=== PATIENT | male | born 1955 | race Hispanic/Latino ===

== ENCOUNTER → 2021-12-17 | Outpatient (CLI) | payer BC ==
[~2021-12-17] VITALS: Ht 165.1 cm; Wt 85.7 kg
[~2021-12-17] MED LIST: REGADENOSON 0.4 MG/5 ML PF SYG IVP SCH
== END | disposition home or self-care (01) ==
LOC: SHCH 08:47
PROVIDERS: ATTEND Internal Medicine Cardiovascular Disease
DX: I25.5 Ischemic cardiomyopathy (principal); I50.21 Acute systolic (congestive) heart failure
CPT/HCPCS: 78452; 93017; 96374; A9500 ×2; J2785

== ENCOUNTER 2022-03-05 07:02 | Day surgery (SDC) | payer BC ==
[2022-02-28 16:49] LABS: BASOPHILS % (AUTO) 0.5 % (0.0-5.0); EOSINOPHILS % (AUTO) 3.4 % (0.0-8.0); HEMATOCRIT 40.1 % (42-54); LYMPHOCYTES % (AUTO) 29.8 % (21.0-51.0); MEAN CORPUSCULAR HEMOGLOBIN 24.9 pg (27.0-33.0); MEAN CORPUSCULAR HGB CONC 30.9 g/dL (32.0-36.0); MEAN CORPUSCULAR VOLUME 80.7 fL (79-99); MONOCYTES % (AUTO) 7.8 % (3.0-13.0); NEUTROPHILS % (AUTO) 58.2 % (40.0-77.0); PLATELET COUNT (AUTO) 349 K/uL (130-400); RED BLOOD CELL COUNT(AUTO) 4.97 MIL/uL (4.50-6.20); RED CELL DISTRIBUTION WIDTH 17.2 % (11.0-15.5); WHITE BLOOD COUNT (AUTO) 7.3 K/uL (4.8-10.8)
[2022-02-28 16:52] LABS: APPEARANCE,URINE Clear (CLEAR); BILIRUBIN,URINE Negative (NEGATIVE); COLOR,URINE Yellow (YELLOW); GLUCOSE, URINE (UA) Negative (NEGATIVE); KETONES,URINE Negative (NEGATIVE); LEUKOCYTE ESTERASE ,URINE Negative (NEGATIVE); NITRATE,URINE Negative (NEGATIVE); OCCULT BLOOD,URINE Negative (NEGATIVE); PROTEIN,URINE Negative (NEGATIVE); UROBILINOGEN,URINE 0.2 mg/dL (0.2-1.0)
[2022-02-28 17:03] LABS: INR 1.02 (0.85-1.15); PROTHROMBIN TIME 11.1 SEC (9.6-11.6)
[2022-02-28 17:04] LABS: PARTIAL THROMBOPLASTIN TIME 33.5 SEC (26.3-35.5)
[2022-02-28 17:08] LABS: CREATININE 1.2 mg/dL (0.5-1.5)
[2022-02-28 17:32] LABS: B-TYPE NATRIURETIC PEPTIDE 222 pg/mL (0-100)
[~2022-03-05] VITALS: Ht 165.1 cm; Wt 78.0 kg
[2022-03-05] VITALS (15 sets, daily range): BP systolic 91–150; BP diastolic 53–72
[~2022-03-05 07:02] MED LIST changes: +AEC81 PO; +FURO40TA7 PO; +INDO50CA97 PO; -REGADENOSON 0.4 MG/5 ML PF SYG IVP SCH; +SACU1TAB PO
[2022-03-05] MEDS ORDERED: HEPARIN 10,000 UNIT/10ML (1,000 UNIT/ML) VIAL ONE (07:26)
[2022-03-05] MEDS ORDERED: IOHEXOL-350 50ML VIAL IV ONE (07:26)
[2022-03-05] MEDS ORDERED: HEPARIN 1,000 UNIT VIAL ONE (07:26)
[2022-03-05] MEDS ORDERED: LIDOCAINE HCL 400MG/20ML VIAL ONE (07:27)
[2022-03-05] MEDS ORDERED: IOHEXOL-350 75 ML VIAL IV ONE (07:27)
[2022-03-05 07:36] LABS: POTASSIUM 4.1 mmol/L (3.5-5.1)
[2022-03-05] MEDS ORDERED: 0.9%NACL 1000ML 1,000 ML IV ONE (07:43)
[2022-03-05] MEDS ORDERED: LIDOCAINE HCL-MPF 2% 5ML VIAL ONE (07:56)
[2022-03-05] MEDS ORDERED: FUROSEMIDE 20MG VIAL ONE (08:14)
[2022-03-05] MEDS ORDERED: 0.9%NACL 10ML VIAL IVP SCH (09:00)
== END 2022-03-05 18:55 | disposition home or self-care (01) ==
LOC: DAH 07:02
PROVIDERS: ATTEND Internal Medicine Cardiovascular Disease
DX: I42.0 Dilated cardiomyopathy (principal); I50.42 Chronic combined systolic (congestive) and diastolic (congestive) heart failure; Z79.899 Other long term (current) drug therapy; Z79.01 Long term (current) use of anticoagulants; Z79.82 Long term (current) use of aspirin; Z86.16 Personal history of COVID-19; Z82.3 Family history of stroke; Z82.49 Family history of ischemic heart disease and other diseases of the circulatory system
CPT/HCPCS: 36415 ×2; 71045 ×2; 80048 ×2; 81003; 83880 ×2; 85025; 85610; 85730; 93005; 93458; A4215; A4216; A4221; A4222; A4223 ×3; A4606; A4663; C1894; J1644 ×2; J1940; J3490 ×2; J7030; Q9967 ×2

== ENCOUNTER 2022-04-10 07:16 | Day surgery (SDC) | payer BC ==
[2022-04-04 11:30] LABS: BASOPHILS % (AUTO) 0.6 % (0.0-5.0); HEMATOCRIT 44.1 % (42-54); LYMPHOCYTES % (AUTO) 30.9 % (21.0-51.0); MEAN CORPUSCULAR HEMOGLOBIN 25.6 pg (27.0-33.0); MEAN CORPUSCULAR HGB CONC 31.3 g/dL (32.0-36.0); MEAN CORPUSCULAR VOLUME 81.8 fL (79-99); MONOCYTES % (AUTO) 7.7 % (3.0-13.0); NEUTROPHILS % (AUTO) 56.5 % (40.0-77.0); PLATELET COUNT (AUTO) 308 K/uL (130-400); RED BLOOD CELL COUNT(AUTO) 5.39 MIL/uL (4.50-6.20); RED CELL DISTRIBUTION WIDTH 17.7 % (11.0-15.5); WHITE BLOOD COUNT (AUTO) 6.9 K/uL (4.8-10.8)
[2022-04-04 11:37] LABS: CREATININE 0.9 mg/dL (0.5-1.5); POTASSIUM 4.4 mmol/L (3.5-5.1)
[2022-04-04 11:54] LABS: INR 1.02 (0.85-1.15); PROTHROMBIN TIME 11.1 SEC (9.6-11.6)
[2022-04-04 11:56] LABS: PARTIAL THROMBOPLASTIN TIME 34.1 SEC (26.3-35.5)
[2022-04-09 08:50] VITALS: BP 122/74
[2022-04-10] VITALS (10 sets, daily range): BP systolic 87–109; BP diastolic 56–72
[~2022-04-10] VITALS: Ht 165.1 cm; Wt 76.2 kg
[~2022-04-10 07:16] MED LIST changes: +0.9%NACL 1000ML 1,000 ML IV SCH; +CARV3.12 PO; +CEFAZOLIN SODIUM 1 GM VIAL IVP SCH; -INDO50CA97 PO
[2022-04-10] MEDS ORDERED: LIDOCAINE HCL 1% 10 ML VIAL ONE (07:41)
[2022-04-10] MEDS ORDERED: BUPIVACAINE/PF 0.25% 30ML VIAL IJ ONE (07:41)
[2022-04-10] MEDS ORDERED: IOHEXOL-350 50ML VIAL IV ONE (07:41)
[2022-04-10] MEDS ORDERED: MIDAZOLAM HCL 1 MG/ML 2ML VIAL ONE ×2 (07:42→08:42)
[2022-04-10] MEDS ORDERED: MEPERIDINE-PF 25 MG/ML SYG ONE ×2 (07:42→08:43)
[2022-04-10] MEDS ORDERED: ACETAMINOPHEN WITH CODEINE 1 TAB TAB PO PRN (09:30)
[2022-04-10] MEDS ORDERED: TRAM50TA4 PO (09:36)
== END 2022-04-10 13:15 | disposition home or self-care (01) ==
LOC: DAH 07:16
PROVIDERS: ATTEND Internal Medicine Cardiovascular Disease
DX: I50.42 Chronic combined systolic (congestive) and diastolic (congestive) heart failure (principal); I42.8 Other cardiomyopathies; I25.2 Old myocardial infarction; Z79.82 Long term (current) use of aspirin; Z79.899 Other long term (current) drug therapy; Z79.01 Long term (current) use of anticoagulants; Z82.49 Family history of ischemic heart disease and other diseases of the circulatory system; Z98.890 Other specified postprocedural states
CPT/HCPCS: 80048; 85025; 85610; 85730; 36415; 93005; 33249; 71045; C1722; C1895; J0690; J7030; J3490 ×2; J2250 ×2; J2175 ×2; A4215; A4222; A4221; A4663; A4216; A6258; A4606; A4223 ×3; 99156; 99157; Q9967

== ENCOUNTER → 2023-08-21 | Outpatient (CLI) | payer OTHER ==
[~2023-08-21] MED LIST changes: -0.9%NACL 1000ML 1,000 ML IV SCH; -AEC81 PO; -CEFAZOLIN SODIUM 1 GM VIAL IVP SCH; +FURO40TA5 PO; -FURO40TA7 PO; +PANT40TA54 PO; +WARF3TAB59 PO
[2023-08-21 16:20] LABS: BASOPHILS # (AUTO) 0.03 K/uL (0.00-0.20); BASOPHILS % (AUTO) 0.4 % (0.0-5.0); EOSINOPHILS # (AUTO) 0.12 K/uL (0.00-0.70); EOSINOPHILS % (AUTO) 1.6 % (0.0-8.0); IMMATURE GRANULOCYTE ABSOLUTE 0.04 K/uL (0-1); LYMPHOCYTES # (AUTO) 1.5 K/uL (1.0-4.8); LYMPHOCYTES % (AUTO) 20.1 % (21.0-51.0); MEAN CORPUSCULAR HEMOGLOBIN 24.8 pg (27.0-33.0); MEAN CORPUSCULAR HGB CONC 30.5 g/dL (32.0-36.0); MEAN CORPUSCULAR VOLUME 81.4 fL (79-99); MONOCYTES # (AUTO) 0.7 K/uL (0.1-1.0); MONOCYTES % (AUTO) 9.6 % (3.0-13.0); NEUTROPHILS # (AUTO) 5.2 K/uL (1.8-7.7); NEUTROPHILS % (AUTO) 67.8 % (40.0-77.0); NUCLEATED RED BLOOD CELLS 0.4 % (0.0-0.19); PLATELET COUNT (AUTO) 262 K/uL (130-400); RED BLOOD CELL COUNT(AUTO) 5.28 MIL/uL (4.50-6.20); RED CELL DISTRIBUTION WIDTH 17.2 % (11.0-15.5); WHITE BLOOD COUNT (AUTO) 7.6 K/uL (4.8-10.8)
[2023-08-21 16:43] LABS: ALBUMIN 2.8 g/dL (3.5-5.0); CREATININE 1.2 mg/dL (0.5-1.5); POTASSIUM 3.9 mmol/L (3.5-5.1); TOTAL PROTEIN, SERUM 7.3 g/dL (6.0-8.3)
== END | disposition home or self-care (01) ==
LOC: LAB 11:56
PROVIDERS: ATTEND Internal Medicine Cardiovascular Disease
DX: I35.0 Nonrheumatic aortic (valve) stenosis (principal)
CPT/HCPCS: 36415; 80053; 85025

== ENCOUNTER 2023-08-23 22:37 | Inpatient (IN) | payer OTHER ==
[~2023-08-23] VITALS: Ht 167.6 cm; Wt 63.0 kg
[2023-08-23 23:16] LABS: BASOPHILS # (AUTO) 0.02 K/uL (0.00-0.20); BASOPHILS % (AUTO) 0.3 % (0.0-5.0); IMMATURE GRANULOCYTE ABSOLUTE 0.03 K/uL (0-1); LYMPHOCYTES # (AUTO) 0.9 K/uL (1.0-4.8); LYMPHOCYTES % (AUTO) 12.4 % (21.0-51.0); MEAN CORPUSCULAR HEMOGLOBIN 24.9 pg (27.0-33.0); MEAN CORPUSCULAR HGB CONC 31.8 g/dL (32.0-36.0); MEAN CORPUSCULAR VOLUME 78.3 fL (79-99); MONOCYTES # (AUTO) 0.7 K/uL (0.1-1.0); MONOCYTES % (AUTO) 8.6 % (3.0-13.0); NEUTROPHILS # (AUTO) 5.9 K/uL (1.8-7.7); NEUTROPHILS % (AUTO) 78.3 % (40.0-77.0); NUCLEATED RED BLOOD CELLS 0.3 % (0.0-0.19); PLATELET COUNT (AUTO) 277 K/uL (130-400); RED BLOOD CELL COUNT(AUTO) 5.62 MIL/uL (4.50-6.20); RED CELL DISTRIBUTION WIDTH 17.4 % (11.0-15.5); WHITE BLOOD COUNT (AUTO) 7.6 K/uL (4.8-10.8)
[2023-08-23 23:24] LABS: APPEARANCE,URINE CLOUDY (CLEAR); BILIRUBIN,URINE NEGATIVE (NEGATIVE); COLOR,URINE YELLOW (YELLOW); GLUCOSE, URINE (UA) NEGATIVE (NEGATIVE); KETONES,URINE NEGATIVE (NEGATIVE); LEUKOCYTE ESTERASE ,URINE NEGATIVE Leu/uL (NEGATIVE); NITRATE,URINE NEGATIVE (NEGATIVE); OCCULT BLOOD,URINE NEGATIVE (NEGATIVE); PH,URINE 5.5 (5.0-8.0); PROTEIN,URINE 50 mg/dL (NEGATIVE); UROBILINOGEN,URINE 0.2 mg/dL (0.2-1.0)
[2023-08-23 23:25] LABS: ADD UA MICROSCOPIC YES
[2023-08-23 23:27] LABS: CREATININE 1.7 mg/dL (0.5-1.5); POTASSIUM 3.8 mmol/L (3.5-5.1)
[2023-08-23 23:29] LABS: INR 2.89 (0.85-1.15); PROTHROMBIN TIME 31.3 SEC (9.6-11.6)
[2023-08-23 23:31] LABS: PARTIAL THROMBOPLASTIN TIME 43.2 SEC (26.3-35.5)
[2023-08-23 23:34] LABS: ALBUMIN 3.3 g/dL (3.5-5.0); BILIRUBIN,TOTAL 2.6 mg/dL (0.2-1.0); MAGNESIUM 2.1 mg/dL (1.80-2.40); TOTAL PROTEIN, SERUM 8.4 g/dL (6.0-8.3)
[2023-08-23 23:36] LABS: BACTERIA,URINE FEW /HPF (None Seen); HYALINE CASTS, URINE 51-100 /LPF (0-1 /LPF); MUCUS,URINE RARE LPF (None Seen); SQUAMOUS EPITHELIAL CELL,UR RARE /HPF (0-2); WBC,URINE 0-1 /HPF (0-1)
[2023-08-23 23:54] LABS: B-TYPE NATRIURETIC PEPTIDE 2990 pg/mL (0-100)
[2023-08-24] VITALS (9 sets, daily range): BP systolic 87–106; BP diastolic 59–74; PULSE 85–102; RESP 18–20; O2SAT 99
[2023-08-24] MEDS ORDERED: INSULIN HUMULIN R 100 UNIT/ML 3ML SQ PRN
[2023-08-24] MEDS ORDERED: ONDANSETRON 4MG INJ IVP PRN
[2023-08-24] MEDS ORDERED: ACETAMINOPHEN 325 MG TAB PO PRN
[2023-08-24] MEDS ORDERED: FUROSEMIDE 40MG VIAL IV SCH
[2023-08-24] MEDS ORDERED: FUROSEMIDE 40MG VIAL ONE (01:49)
[2023-08-24] MEDS: MIDODRINE HCL 5 MG TABLET PO SCH ×2 (01:51→09:10)
[2023-08-24 07:35] LABS: BASOPHILS # (AUTO) 0.02 K/uL (0.00-0.20); BASOPHILS % (AUTO) 0.4 % (0.0-5.0); HEMATOCRIT 35.1 % (42-54); IMMATURE GRANULOCYTE ABSOLUTE 0.03 K/uL (0-1); LYMPHOCYTES # (AUTO) 0.8 K/uL (1.0-4.8); LYMPHOCYTES % (AUTO) 15.6 % (21.0-51.0); MEAN CORPUSCULAR HEMOGLOBIN 25.5 pg (27.0-33.0); MEAN CORPUSCULAR HGB CONC 32.5 g/dL (32.0-36.0); MEAN CORPUSCULAR VOLUME 78.5 fL (79-99); MONOCYTES # (AUTO) 0.6 K/uL (0.1-1.0); NEUTROPHILS # (AUTO) 3.8 K/uL (1.8-7.7); NEUTROPHILS % (AUTO) 72.4 % (40.0-77.0); PLATELET COUNT (AUTO) 207 K/uL (130-400); RED BLOOD CELL COUNT(AUTO) 4.47 MIL/uL (4.50-6.20); RED CELL DISTRIBUTION WIDTH 16.5 % (11.0-15.5); WHITE BLOOD COUNT (AUTO) 5.3 K/uL (4.8-10.8)
[2023-08-24 07:49] LABS: HEMOGLOBIN A1C 6.8 % (4.0-6.0)
[2023-08-24 08:41] LABS: CREATININE 1.3 mg/dL (0.5-1.5); MAGNESIUM 1.8 mg/dL (1.80-2.40)
[2023-08-24] MEDS ORDERED: ASPIRIN 81 MG EC TAB PO SCH (09:00)
[2023-08-24] MEDS ORDERED: ENOXAPARIN SODIUM 40 MG/0.4 ML SYRINGE SQ SCH (09:00)
[2023-08-24] MEDS: POTASSIUM CHLORIDE 10% ELIXIR 20 MEQ/15 ML UDCUP PO PRN ×4 (09:59→16:02)
[2023-08-24] MEDS ORDERED: POTASSIUM CHLORIDE 20MEQ/100ML 100 ML IV PRN (10:00)
[2023-08-24] MEDS ORDERED: PHARMACY COMMUNICATION MISC SCH (12:00)
[2023-08-24] MEDS: CARVEDILOL 3.125 MG TABLET PO SCH ×2 (12:00→20:05)
[2023-08-24] MEDS: DIGOXIN 125 MCG TABLET PO SCH (12:23)
[2023-08-24] MEDS: SPIRONOLACTONE 25 MG TAB PO SCH (12:23)
[2023-08-24] MEDS: MILRINONE-D5W 20 MG/100 ML 100 ML IV SCH (12:36)
[2023-08-24] MEDS: BUMETANIDE 2.5MG/10ML (DRIP) 40 ML IV SCH ×2 (12:38→20:14)
[2023-08-24] MEDS: WARFARIN SODIUM 1 MG TAB PO SCH (16:03)
[2023-08-24] MEDS: SACUBITRIL/VALSARTAN 1 EACH TABLET PO SCH (20:03)
[2023-08-24] MEDS: KCL 20 MEQ ERTAB PO PRN (20:03)
[2023-08-25] VITALS (10 sets, daily range): BP systolic 92–108; BP diastolic 52–78; PULSE 92–109; RESP 16–20; O2SAT 94–97
[2023-08-25 04:34] LABS: MAGNESIUM 1.8 mg/dL (1.80-2.40); POTASSIUM 3.2 mmol/L (3.5-5.1)
[2023-08-25] MEDS: KCL 20 MEQ ERTAB PO PRN ×3 (04:43→16:02)
[2023-08-25] MEDS: MILRINONE-D5W 20 MG/100 ML 100 ML IV SCH ×2 (06:38→20:39)
[2023-08-25] MEDS: MAGNESIUM 2GM PREMIX 50ML 50 ML IV PRN (08:08)
[2023-08-25] MEDS: DIGOXIN 125 MCG TABLET PO SCH (08:08)
[2023-08-25] MEDS: CARVEDILOL 3.125 MG TABLET PO SCH ×2 (08:08→20:38)
[2023-08-25 08:21] LABS: HEMATOCRIT 36.6 % (42-54); MEAN CORPUSCULAR HEMOGLOBIN 25.1 pg (27.0-33.0); MEAN CORPUSCULAR HGB CONC 31.7 g/dL (32.0-36.0); MEAN CORPUSCULAR VOLUME 79.2 fL (79-99); RED BLOOD CELL COUNT(AUTO) 4.62 MIL/uL (4.50-6.20); RED CELL DISTRIBUTION WIDTH 17.1 % (11.0-15.5); WHITE BLOOD COUNT (AUTO) 7.7 K/uL (4.8-10.8)
[2023-08-25 08:28] LABS: CREATININE 1.3 mg/dL (0.5-1.5); POTASSIUM 3.2 mmol/L (3.5-5.1)
[2023-08-25 08:31] LABS: INR 2.18 (0.85-1.15)
[2023-08-25 08:33] LABS: PARTIAL THROMBOPLASTIN TIME 46.6 SEC (26.3-35.5)
[2023-08-25] MEDS: POTASSIUM CHLORIDE 10% ELIXIR 20 MEQ/15 ML UDCUP PO PRN ×3 (10:04→20:39)
[2023-08-25] MEDS: SACUBITRIL/VALSARTAN 1 EACH TABLET PO SCH ×2 (10:07→20:11)
[2023-08-25] MEDS: SPIRONOLACTONE 25 MG TAB PO SCH (11:09)
[2023-08-25 15:25] LABS: CREATININE 1.1 mg/dL (0.5-1.5); MAGNESIUM 2.2 mg/dL (1.80-2.40); POTASSIUM 3.8 mmol/L (3.5-5.1)
[2023-08-25] MEDS ORDERED: WARFARIN SODIUM 1 MG TAB PO SCH (16:00)
[2023-08-25] MEDS: BUMETANIDE 2.5MG/10ML (DRIP) 40 ML IV SCH (19:05)
[2023-08-26] VITALS (9 sets, daily range): BP systolic 91–111; BP diastolic 49–68; PULSE 87–99; RESP 17–20; O2SAT 95
[2023-08-26 04:36] LABS: CREATININE 1.1 mg/dL (0.5-1.5); MAGNESIUM 1.8 mg/dL (1.80-2.40); POTASSIUM 3.3 mmol/L (3.5-5.1)
[2023-08-26] MEDS: POTASSIUM CHLORIDE 10% ELIXIR 20 MEQ/15 ML UDCUP PO PRN (05:33)
[2023-08-26] MEDS ORDERED: DIGOXIN 250 MCG/ML 2ML AMP IV ONE (08:00)
[2023-08-26] MEDS: SPIRONOLACTONE 25 MG TAB PO SCH (11:14)
[2023-08-26] MEDS: POTASSIUM CHLORIDE 10MEQ SR TAB PO SCH ×2 (11:14→21:00)
[2023-08-26] MEDS: DIGOXIN 125 MCG TABLET PO SCH (11:15)
[2023-08-26] MEDS: PANTOPRAZOLE 40 MG TAB DR PO SCH (11:16)
[2023-08-26] MEDS: TORSEMIDE 20 MG TAB PO SCH ×2 (11:16→20:59)
[2023-08-26] MEDS: CARVEDILOL 3.125 MG TABLET PO SCH ×2 (11:16→20:58)
[2023-08-26] MEDS: SACUBITRIL/VALSARTAN 1 EACH TABLET PO SCH ×2 (11:16→20:58)
[2023-08-26] MEDS: WARFARIN SODIUM 1 MG TAB PO SCH (17:23)
[2023-08-26] MEDS: MILRINONE-D5W 20 MG/100 ML 100 ML IV SCH (20:50)
[2023-08-26] MEDS: FAMOTIDINE 20MG TAB PO SCH (20:58)
[2023-08-27] VITALS (10 sets, daily range): BP systolic 88–110; BP diastolic 40–66; PULSE 85–99; RESP 16–20; O2SAT 96
[2023-08-27 05:31] LABS: HEMATOCRIT 40.3 % (42-54); MEAN CORPUSCULAR HEMOGLOBIN 24.8 pg (27.0-33.0); MEAN CORPUSCULAR HGB CONC 31.8 g/dL (32.0-36.0); MEAN CORPUSCULAR VOLUME 77.9 fL (79-99); RED BLOOD CELL COUNT(AUTO) 5.17 MIL/uL (4.50-6.20); RED CELL DISTRIBUTION WIDTH 16.7 % (11.0-15.5); WHITE BLOOD COUNT (AUTO) 4.7 K/uL (4.8-10.8)
[2023-08-27 05:56] LABS: ALBUMIN 2.6 g/dL (3.5-5.0); BILIRUBIN,TOTAL 1.5 mg/dL (0.2-1.0); CREATININE 1.1 mg/dL (0.5-1.5); MAGNESIUM 1.9 mg/dL (1.80-2.40); POTASSIUM 3.6 mmol/L (3.5-5.1); TOTAL PROTEIN, SERUM 7.1 g/dL (6.0-8.3)
[2023-08-27] MEDS: MAGNESIUM 2GM PREMIX 50ML 50 ML IV PRN (06:14)
[2023-08-27] MEDS: KCL 20 MEQ ERTAB PO PRN (06:15)
[2023-08-27 08:50] LABS: INR 1.68 (0.85-1.15); PROTHROMBIN TIME 18.8 SEC (9.6-11.6)
[2023-08-27 08:52] LABS: PARTIAL THROMBOPLASTIN TIME 44.5 SEC (26.3-35.5)
[2023-08-27] MEDS ORDERED: DAPA10TA PO (09:28)
[2023-08-27] MEDS ORDERED: TORS20TA4 PO (09:28)
[2023-08-27] MEDS ORDERED: SACU1TAB PO (09:28)
[2023-08-27] MEDS ORDERED: SPIR25TA6 PO (09:28)
[2023-08-27] MEDS ORDERED: DIGO0.12 PO (09:28)
[2023-08-27] MEDS ORDERED: WARF3TAB59 PO (09:49)
[2023-08-27 10:33] LABS: % IRON SATURATION 7.9 % (30-44)
[2023-08-27] MEDS: SACUBITRIL/VALSARTAN 1 EACH TABLET PO SCH ×2 (10:38→20:12)
[2023-08-27] MEDS: CARVEDILOL 3.125 MG TABLET PO SCH ×2 (10:41→20:12)
[2023-08-27] MEDS: DIGOXIN 125 MCG TABLET PO SCH (10:41)
[2023-08-27] MEDS: SPIRONOLACTONE 25 MG TAB PO SCH (10:41)
[2023-08-27] MEDS: FAMOTIDINE 20MG TAB PO SCH ×2 (10:44→20:12)
[2023-08-27] MEDS: TORSEMIDE 20 MG TAB PO SCH ×2 (10:44→20:12)
[2023-08-27] MEDS: PANTOPRAZOLE 40 MG TAB DR PO SCH (10:44)
[2023-08-27] MEDS: POTASSIUM CHLORIDE 10MEQ SR TAB PO SCH ×2 (10:52→20:13)
[2023-08-27] MEDS ORDERED: COMPOUND IV MISC 1 EACH IVSOLN MISC PRN (12:00)
[2023-08-27] MEDS ORDERED: COMPOUND IV REFRIGERATED 1 EACH IVSOLN MISC PRN (12:00)
[2023-08-27] MEDS ORDERED: IRON SUCROSE COMPLEX 300 MG in 0.9% NACL 250ML 250 ML IV ONE (14:00)
[2023-08-28] VITALS (8 sets, daily range): BP systolic 87–105; BP diastolic 47–64; PULSE 53–100; RESP 18; O2SAT 96–97
[2023-08-28 04:27] LABS: HEMATOCRIT 41.3 % (42-54); MEAN CORPUSCULAR HEMOGLOBIN 24.5 pg (27.0-33.0); MEAN CORPUSCULAR HGB CONC 31.5 g/dL (32.0-36.0); MEAN CORPUSCULAR VOLUME 77.8 fL (79-99); RED BLOOD CELL COUNT(AUTO) 5.31 MIL/uL (4.50-6.20); RED CELL DISTRIBUTION WIDTH 16.6 % (11.0-15.5); WHITE BLOOD COUNT (AUTO) 5.4 K/uL (4.8-10.8)
[2023-08-28 04:39] LABS: CREATININE 1.3 mg/dL (0.5-1.5); MAGNESIUM 2.3 mg/dL (1.80-2.40)
[2023-08-28] MEDS: CARVEDILOL 3.125 MG TABLET PO SCH ×2 (08:25→20:01)
[2023-08-28] MEDS: SPIRONOLACTONE 25 MG TAB PO SCH (08:25)
[2023-08-28] MEDS: FAMOTIDINE 20MG TAB PO SCH ×2 (08:25→20:00)
[2023-08-28] MEDS: SACUBITRIL/VALSARTAN 1 EACH TABLET PO SCH ×2 (08:25→20:01)
[2023-08-28] MEDS: PANTOPRAZOLE 40 MG TAB DR PO SCH (08:25)
[2023-08-28] MEDS: TORSEMIDE 20 MG TAB PO SCH ×2 (08:25→20:00)
[2023-08-28] MEDS: POTASSIUM CHLORIDE 10MEQ SR TAB PO SCH ×2 (08:27→20:00)
[2023-08-28] MEDS: DIGOXIN 125 MCG TABLET PO SCH (08:27)
[2023-08-28 08:45] LABS: INR 1.43 (0.85-1.15); PROTHROMBIN TIME 16.2 SEC (9.6-11.6)
[2023-08-28] MEDS ORDERED: WARFARIN SODIUM 1 MG TAB PO SCH ×2 (16:00)
[2023-08-28] MEDS ORDERED: WARFARIN SODIUM 5 MG TAB PO SCH (16:00)
[2023-08-29 03:53] VITALS: BP 108/68; PULSE 86; RESP 18
[2023-08-29 04:19] LABS: HEMATOCRIT 43.3 % (42-54); MEAN CORPUSCULAR HGB CONC 31.4 g/dL (32.0-36.0); MEAN CORPUSCULAR VOLUME 79.4 fL (79-99); PLATELET COUNT (AUTO) 290 K/uL (130-400); RED BLOOD CELL COUNT(AUTO) 5.45 MIL/uL (4.50-6.20); RED CELL DISTRIBUTION WIDTH 17.2 % (11.0-15.5); WHITE BLOOD COUNT (AUTO) 5.7 K/uL (4.8-10.8)
[2023-08-29 04:30] LABS: CREATININE 1.1 mg/dL (0.5-1.5); INR 1.43 (0.85-1.15); MAGNESIUM 2.1 mg/dL (1.80-2.40); POTASSIUM 3.5 mmol/L (3.5-5.1); PROTHROMBIN TIME 16.2 SEC (9.6-11.6)
[2023-08-29] MEDS: KCL 20 MEQ ERTAB PO PRN ×2 (05:19→07:30)
[2023-08-29 08:17] VITALS: BP 95/71; PULSE 95; RESP 20
[2023-08-29] MEDS ORDERED: WARFARIN SODIUM 5 MG TAB PO SCH ×2 (09:00)
[2023-08-29] MEDS: CARVEDILOL 3.125 MG TABLET PO SCH (09:00)
[2023-08-29] MEDS ORDERED: ENOXAPARIN SODIUM 60 MG/0.6 ML SQ SCH (09:00)
[2023-08-29] MEDS: SACUBITRIL/VALSARTAN 1 EACH TABLET PO SCH (09:00)
[2023-08-29] MEDS: POTASSIUM CHLORIDE 10MEQ SR TAB PO SCH (09:21)
[2023-08-29] MEDS: FAMOTIDINE 20MG TAB PO SCH (09:21)
[2023-08-29] MEDS: PANTOPRAZOLE 40 MG TAB DR PO SCH (09:21)
[2023-08-29] MEDS: TORSEMIDE 20 MG TAB PO SCH (09:21)
[2023-08-29] MEDS: DIGOXIN 125 MCG TABLET PO SCH (09:23)
[2023-08-29] MEDS: SPIRONOLACTONE 25 MG TAB PO SCH (09:27)
[2023-08-29 09:40] VITALS: O2SAT 98
[2023-08-29] MEDS: WARFARIN SODIUM 2 MG TAB PO SCH ×2 (09:41→10:27)
[2023-08-29 10:23] VITALS: PULSE 86
[2023-08-29 11:25] VITALS: BP_SYST 91; BP_DIAS 6; BP_DIAS 67; PULSE 97; RESP 20
== END 2023-08-29 15:30 | disposition home or self-care (01) | DRG 291 ==
LOC: EDH 22:37 → EDHIP 23:48 → 2AH 08-24 12:59
PROVIDERS: ADMIT Internal Medicine Infectious Disease; ATTEND Internal Medicine Infectious Disease
DX: I11.0 Hypertensive heart disease with heart failure (principal); I50.43 Acute on chronic combined systolic (congestive) and diastolic (congestive) heart failure; N17.9 Acute kidney failure, unspecified; I51.3 Intracardiac thrombosis, not elsewhere classified; E11.9 Type 2 diabetes mellitus without complications; E87.6 Hypokalemia; I50.82 Biventricular heart failure; I42.0 Dilated cardiomyopathy; I95.9 Hypotension, unspecified; Z79.01 Long term (current) use of anticoagulants; Z86.711 Personal history of pulmonary embolism; Z86.718 Personal history of other venous thrombosis and embolism; Z95.810 Presence of automatic (implantable) cardiac defibrillator
CPT/HCPCS: 36415; 71045; 80048; 80053; 81001; 82550; 82728; 82948; 83036; 83540; 83550; 83735; 83880; 84132; 84484; 85025; 85027; 85210; 85610; 85730; 93005; G0378; J1160; J1650; J1756; J1940; J2260; J3475; J3490; J7050; G8980-CH; G8983-CH

== ENCOUNTER → 2023-09-01 | Outpatient (CLI) | payer OTHER ==
[~2023-09-01] MED LIST changes: +DAPA10TA PO; +DIGO0.12 PO; -FURO40TA5 PO; +SPIR25TA6 PO; +TORS20TA4 PO
[2023-09-01 16:24] LABS: INR 1.87 (0.85-1.15); PROTHROMBIN TIME 20.8 SEC (9.6-11.6)
[2023-09-01 16:45] LABS: CREATININE 1.4 mg/dL (0.5-1.5); DIGOXIN 0.28 ng/mL (0.50-2.00); MAGNESIUM 2.3 mg/dL (1.80-2.40); POTASSIUM 3.5 mmol/L (3.5-5.1)
== END | disposition home or self-care (01) ==
LOC: LAB 11:36
PROVIDERS: ATTEND Internal Medicine Cardiovascular Disease
DX: I50.22 Chronic systolic (congestive) heart failure (principal)
CPT/HCPCS: 36415; 80048; 80162; 83735; 83880; 85610

== ENCOUNTER → 2023-09-08 | Outpatient (CLI) | payer OTHER ==
[2023-09-08 12:43] LABS: CREATININE 1.2 mg/dL (0.5-1.5); POTASSIUM 3.5 mmol/L (3.5-5.1)
[2023-09-08 12:48] LABS: INR 3.12 (0.85-1.15); PROTHROMBIN TIME 33.6 SEC (9.6-11.6)
[2023-09-08 12:50] LABS: PARTIAL THROMBOPLASTIN TIME 56.9 SEC (26.3-35.5)
== END | disposition home or self-care (01) ==
LOC: LAB 09:53
PROVIDERS: ATTEND Internal Medicine Cardiovascular Disease
DX: I50.22 Chronic systolic (congestive) heart failure (principal)
CPT/HCPCS: 36415; 80048; 83880; 85610; 85730

== ENCOUNTER → 2023-09-18 | Outpatient (CLI) | payer OTHER ==
[2023-09-18 12:53] LABS: CREATININE 1.3 mg/dL (0.5-1.5); POTASSIUM 3.9 mmol/L (3.5-5.1)
== END | disposition home or self-care (01) ==
LOC: LAB 09:02
PROVIDERS: ATTEND Internal Medicine Cardiovascular Disease
DX: I50.22 Chronic systolic (congestive) heart failure (principal); I26.99 Other pulmonary embolism without acute cor pulmonale
CPT/HCPCS: 36415; 80048; 83880

== ENCOUNTER → 2024-10-26 | Outpatient (CLI) | payer OTHER | END | disposition home or self-care (01) | LOC: SHCH 15:20 | PROVIDERS: ATTEND Internal Medicine Cardiovascular Disease | DX: I42.8 Other cardiomyopathies (principal); I50.22 Chronic systolic (congestive) heart failure; I26.99 Other pulmonary embolism without acute cor pulmonale; I82.502 Chronic embolism and thrombosis of unspecified deep veins of left lower extremity; Z79.01 Long term (current) use of anticoagulants; Z95.810 Presence of automatic (implantable) cardiac defibrillator; Z79.899 Other long term (current) drug therapy | CPT/HCPCS: 93970 ==

== ENCOUNTER 2024-12-28 15:43 | Emergency (ER) | payer OTHER ==
[~2024-12-28] VITALS: Ht 172.7 cm; Wt 72.6 kg
--- NOTE | 2024-12-28 15:59 | ERN ---
ED Note History of Present Illness Stated Complaint: TRAUMA Chief Complaint: Trauma Activation Time Seen by MD: 15:46 Dictation: PATIENT IS A 69-YEAR-OLD MALE HERE WITH HIS DAUGHTERS WITH COMPLAINTS OF LACERATIONS TO THE DISTAL RIGHT HAND 2ND 3RD AND 4TH FINGERS. 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 HE HAS RUBBER BANDS ON ALL THREE FINGERS DUE TO HE IS ON COUMADIN DAILY. PARTIAL AMPUTATION OF DISTAL RIGHT 3RD PHALANX NOTED. LAST TETANUS SHOT IS UNKNOWN. TRAUMA ALERT WAS ACTIVATED, EVALUATED PATIENT IN TRIAGE. Allergies: Coded Allergies: No Known Drug Allergies (Verified Allergy, Unknown, 12/14/21) Home Meds Active Scripts Warfarin Sodium (Warfarin Sodium) 3 Mg Tablet, 3 MG PO AD, #30 TAB 3 Refills 3 mg on Fri Sat and Sun Take 0.5 tablet (1.5 mg) Fri and Prov:HUA VELASQUEZ MD 08/27/23 Spironolactone (Spironolactone) 25 Mg Tablet, 12.5 MG PO DAILY, #30 TAB 3 Refills Prov:HUA VELASQUEZ MD 08/27/23 Dapagliflozin Propanediol (Farxiga) 10 Mg Tablet, 10 MG PO DAILY for 30 Days, #30 TAB 3 Refills Prov:HUA VELASQUEZ MD 08/27/23 Torsemide (Torsemide) 20 Mg Tablet, 40 MG PO BID, #60 TAB 3 Refills Prov:HUA VELASQUEZ MD 08/27/23 Digoxin (Digoxin) 0.125/2.5 Solution, 0.125 MG PO DAILY for 90 Days, #90 ML Prov:HUA VELASQUEZ MD 08/27/23 Sacubitril/Valsartan (Entresto 24 mg-26 mg Tablet) 24 Mg-26 Mg Tablet, 0.5 EACH PO BID, #60 TAB 3 Refills Prov:HUA VELASQUEZ MD 08/27/23 Pantoprazole Sodium (Pantoprazole Sodium) 40 Mg Tablet.dr, 40 MG PO DAILY, #30 TAB 0 Refills Prov:ELIZABETH MARIA 08/17/23 Reported Medications Carvedilol (Carvedilol) 3.125 Mg Tablet, 3.125 MG PO BID, TAB 04/09/22 Past Medical History Past Medical History: Arthritis, DVT, Heart Disease, Hypertension, Other Additional Past Medical Hx: P.E, LEFT VENTRICLE THROMBUS, CARDIOMYOPATHY Surgical History: Pacer/AICD RN Note Reviewed/Agreed w/PFSH: Yes Review of System Dictation CONSTITUTIONAL: NEGATIVE EXCEPT FOR HPI HEAD/FACE: NEGATIVE EXCEPT FOR HPI EENT: NEGATIVE EXCEPT FOR HPI RESPIRATORY: NEGATIVE EXCEPT FOR HPI GASTROINTESTINAL/ABDOMINAL: NEGATIVE EXCEPT FOR HPI GENITOURINARY: NEGATIVE EXCEPT FOR HPI MUSCULOSKELETAL: NEGATIVE EXCEPT FOR HPI LACERATIONS RIGHT DISTAL RIGHT THE 2ND 3RD AND 4TH FINGERS PARTIAL AMPUTATION DISTAL RIGHT 3RD INTEGUMENTARY: NEGATIVE EXCEPT FOR HPI NEUROLOGICAL/PSYCH: NEGATIVE EXCEPT FOR HPI HEMATOLOGIC/LYMPHATIC: NEGATIVE EXCEPT FOR HPI ALL SYSTEMS NEGATIVE, EXCEPT NOTED ABOVE. 13 POINT REVIEW OF SYSTEMS ASSESSED AND ALL NEGATIVE EXCEPT FOR ABOVE. Initial Vital Sign VS Vital Signs Date Time Temp Pulse Resp B/P (MAP) Pulse Ox O2 Delivery O2 Flow Rate FiO2 12/28/24 15:47 97.9 110 20 119/81 98 Room Air Physical Exam Dictation VITAL SIGNS REVIEWED GENERAL APPEARANCE: ALERT, ORIENTED X 3, MODERATE ACUTE DISTRESS, WELL DEVELOPED, NOURISHED. HEAD AND FACE: NON-TRAUMATIC. EYES: PERRL, PINK CONJUNCTIVAS, EYELID NO TRAUMA, ANTERIOR CHAMBER WITH ARCUS SENILIS. EARS: PINNAS INTACT AND NO SIGNS OF TRAUMA OR ERYTHEMA EAR CANALS CLEAR AND NO DISCHARGE TM NO ERYTHEMA NOSE: NO DISCHARGE, NO BLEEDING. OROPHARYNX: MOUTH NORMAL, TONGUE PINK, PHARYNX CLEAR,NO ERYTHEMA, TONSILS NO EXUDATES, NO ABSCESSES NOTED, MUCOUS MEMBRANE MOIST NECK: SUPPLE, NON-TENDER, NO THYROMEGALY, NO MASSES, NO JVD, NO BRUITS BREAST:DEFERRED CHEST:NO TENDERNESS, NO CREPITUS, NO PARADOXICAL MOVEMENT, NO RETRACTIONS LUNGS:CLEAR, WELL-VENTILATED, SYMMETRIC, NO RALES, NO WHEEZING, NO RHONCHI, NO STRIDOR, GOOD BREATH SOUNDS BILATERALLY HEART: REGULAR RATE, REGULAR RHYTHM, NO MURMUR, NO GALLOPS VASCULAR: NO PERIPHERAL EDEMA, ABDOMEN: SOFT, POSITIVE BOWEL SOUNDS, NONDISTENDED, NO GUARDING, NONTENDER, NO REBOUND, NO MASSES NO HEPATOMEGALY, NO SPLENOMEGALY, NO MOTTA'S SIGN, NO HERNIAS. RECTAL: DEFERRED GENITAL: DEFERRED NEUROLOGICAL: NORMAL SPEECH, MOTOR FUNCTION INTACT, SENSORY FUNCTION INTACT MUSCULOSKELETAL: NECK NONTENDER, FULL RANGE OF MOTION, BACK NONTENDER, FULL RAN GE OF MOTION, EXTREMITIES: NONTENDER, FULL RANGE OF MOTION SKIN: COLOR PINK, PARTIAL AMPUTATION TO DISTAL RIGHT 3RD FINGER. NAIL IS INTACT FINGER PADS LACERATIONS TO RIGHT 2ND AND 4TH FINGER LYMPHATIC: DEFERRED Results (Laboratory/Radiology) Labs Reviewed?: Yes ED Course ED Course Orders Procedure Category Date Status Time Hand 3+Vws Rt RAD 12/28/24 Resulted 15:51 Lidocaine Hcl 1% 20ml PHA 12/28/24 Complete Vial (Lidocaine Hc 16:00 Cefazolin Sodium PHA 12/28/24 Complete (Ancef) 15:51 Tetanus,Diphtheria PHA 12/28/24 Complete Tox [Adult] (Diphther 16:00 Morphine 2mg Syg PHA 12/28/24 Complete (Morphine 2mg Syg) 16:00 Ondansetron 4mg Inj PHA 12/28/24 Complete (Zofran 4mg Inj) 16:00 Current Medications Medications (Trade) Dose Ordered Sig/Brian Route PRN Reason Start Time Stop Time Status Last Admin Dose Admin Cefazolin Sodium (Ancef) 2 gm ONCE STAT IVPB 12/28/24 15:51 12/28/24 15:55 DC 12/28/24 16:01 Lidocaine HCl (Lidocaine HCl 1% 20ml Vial) 20 ml ONCE ONCE INJ 12/28/24 16:00 12/28/24 16:01 DC 12/28/24 16:03 Morphine Sulfate (morPHINE 2MG SYG) 2 mg ONCE ONCE IVP 12/28/24 16:00 12/28/24 16:01 DC 12/28/24 16:01 Ondansetron HCl (zoFRAN 4MG INJ) 4 mg ONCE ONCE IVP 12/28/24 16:00 12/28/24 16:01 DC 12/28/24 16:01 Tetanus/ Diphtheria Toxoids Adsorbed (DiphthERIA-teTANUS TOXOID [ADULT]/ DECAVAC) 0.5 ml ONCE ONCE IM 12/28/24 16:00 12/28/24 16:01 DC 12/28/24 16:03 Vital Signs Date Time Temp Pulse Resp B/P (MAP) Pulse Ox O2 Delivery O2 Flow Rate FiO2 12/28/24 15:47 97.9 110 20 119/81 98 Room Air Medical Decision Making MDM MDM: DIFFERENTIAL DIAGNOSIS: FINGER ABRASION, FINGER TRAUMA, LACERATION, RATIONALE: TESTS CONSIDERED AND ORDERED SECONDARY TO SHARED DECISION MAKING INCLUDE: PREVIOUS OUTSIDE RECORDS REVIEWED: OLD ER VISITS. PATIENT IS A 69-YEAR-OLD GENTLEMAN COMING IN TO BE EVALUATED FOR RIGHT HAND FINGER PARTIAL AMPUTATION. PHYSICAL EXAM RIGHT HAND 2ND 3RD AND 4TH DISTAL PHALANX AVULSION FRACTURE WITH LACERATION. LACERATIONS Were Approximated Using FOUR OLD TIMES 20. NEOSPORIN APPLIED TO DISTAL DIGITS COVERED WITH A BREATHABLE GAUZE. PATIENT WAS DISCHARGED IN STABLE CONDITION I DID ADVISED HIM APPROPRIATE FOLLOW UP WITH PCP AND/OR HAND SPECIALIST. Procedure Wound Location: upper extremity Wound's Depth, Shape: into muscle, irregular, contused tissue Wound Explored: clean Irrigated w/ Saline (ccs): 100 Betadine Prep?: Yes Anesthesia: 1% Lidocaine Volume Anesthetic (ccs): 8 Wound Debrided: minimal Wound Repaired With: sutures Suture Size/Type: 4:0 Number of Sutures: 20 Layer Closure?: Yes Sterile Dressing Applied?: Yes DX & DISP Disposition: Discharge Departure Impression: Primary Impression: Finger contusion Additional Impressions: Partial traumatic amputation of right index finger through phalanx, Partial traumatic amputation of right middle finger through phalanx Condition: Stable Additional Instructions: FOLLOW-UP WITH PRIMARY CARE PROVIDER IN 1 TO 2 DAYS. TAKE MEDICATIONS DIRECTED HERE IN THE EMERGENCY ROOM. OKAY TO CONTINUE HOME MEDICATIONS UNLESS OTHERWISE DISCUSSED DURING YOUR VISIT IN THE EMERGENCY ROOM TODAY. RETURN TO YOUR NEAREST EMERGENCY ROOM IF SYMPTOMS WORSEN OR IF THERE IS NO IMPROVEMENT. CALL 911 IF YOU NEED IMMEDIATE ASSISTANCE. TAKE TYLENOL [id number] NEEDED AND IF NO CONTRAINDICATIONS ARE PRESENT. INCREASE ORAL HYDRATION. A WOUND CULTURE OR URINE CULTURE WAS ORDERED HERE IN THE EMERGENCY ROOM DEPARTMENT PLEASE FOLLOW-UP WITH PRIMARY CARE PROVIDER AND ADVISE THEM TO GET REPEAT PORTS FROM OUR FACILITY. IF YOU HAD ANY RAMONA WRAP/SPLINTS THAT WERE APPLIED HERE, PLEASE DO NOT REMOVE THEM UNTIL YOU SEE YOUR PRIMARY CARE OR SPECIALTY. REFERRALS: Sergio Lin [facility] [employer] Address: [address] [place] [address] [address], [place] [address] Referrals: ASHLEY ALVARADO MD (PCP) Time of Disposition: 17:57 OLEG DOBSON NP Dec 28, 2024 15:59 THOMAS GARCIA MD Dec 28, 2024 18:01
[2024-12-28] MEDS: ceFAZolin SODIUM 2 GM VIAL IVPB STA (16:01)
[2024-12-28] MEDS: ondanSETRON 4MG INJ IVP ONE (16:01)
[2024-12-28] MEDS: morPHINE 2 MG SYG IVP ONE (16:01)
[2024-12-28] MEDS: LIDOCAINE HCL 1% 20 ML VIAL INJ ONE (16:03)
[2024-12-28] MEDS: teTANUS/diphthERIA TOXOID [ADULT] 0.5 ML VIAL IM ONE (16:03)
--- NOTE | 2024-12-28 16:26 | HMCIMG ---
HAND 3+VWS RT HISTORY: Aspiration COMPARISON: None TECHNIQUE: 3 images of right hand were obtained. FINDINGS: There is amputation of the third distal phalanx. Soft tissue swelling is seen. There is no other acute displaced fracture or dislocation. Degenerative changes are seen. IMPRESSION: 1. Findings as described above.
[2024-12-28] MEDS: NEOMY SULF/BACITRA/POLYMYXIN B 1 EACH PACKET TP ONE (18:02)
[2024-12-28] MEDS ORDERED: CEPH500B PO (18:03)
[2024-12-28] MEDS ORDERED: ACET-2079 PO (18:03)
[2024-12-28 18:24] VITALS: BP 114/74; PULSE 88; RESP 16; TEMP 98.3; O2SAT 98
== END 2024-12-28 18:30 | disposition home or self-care (01) ==
LOC: EDH 15:43
DX: S68.120A Partial traumatic metacarpophalangeal amputation of right index finger, initial encounter (principal); S68.122A Partial traumatic metacarpophalangeal amputation of right middle finger, initial encounter; M19.90 Unspecified osteoarthritis, unspecified site; I10 Essential (primary) hypertension; Z79.84 Long term (current) use of oral hypoglycemic drugs; Z79.899 Other long term (current) drug therapy; Z86.718 Personal history of other venous thrombosis and embolism; Z95.810 Presence of automatic (implantable) cardiac defibrillator; W31.9XXA Contact with unspecified machinery, initial encounter; Y93.9 Activity, unspecified; Y92.89 Other specified places as the place of occurrence of the external cause; Y99.8 Other external cause status
CPT/HCPCS: 99284; 96374; 96375; 90714; 73130; 90471; 12002; J2270; J2405; J0690